=== PATIENT | female | born 1995 | race Caucasian/White ===

== ENCOUNTER 2017-03-21 22:42 | Emergency (ER) | payer MEDICAID, OTHER ==
[~2017-03-21] VITALS: Ht 167.6 cm; Wt 145.4 kg
[~2017-03-21 22:42] MED LIST: SERT50TA12 PO
[2017-03-21] MEDS ORDERED: ALPR0.5T8 PO (23:01)
[2017-03-21] MEDS ORDERED: ACETAMINOPHEN/CODEINE 300-30 MG TABLET PO ONE (23:45)
[2017-03-21] MEDS ORDERED: AMOXICILLIN TRIHYDRATE 250 MG CAPSULE PO ONE (23:45)
[2017-03-22 01:40] VITALS: BP 129/86
== END 2017-03-22 01:42 | disposition home or self-care (01) ==
LOC: EMS 22:58
DX: H66.92 Otitis media, unspecified, left ear (principal); F12.90 Cannabis use, unspecified, uncomplicated; F17.210 Nicotine dependence, cigarettes, uncomplicated; F41.9 Anxiety disorder, unspecified; F32.9 Major depressive disorder, single episode, unspecified; F12.10 Cannabis abuse, uncomplicated
CPT/HCPCS: 99283; 99406

== ENCOUNTER 2017-09-06 10:05 | Emergency (ER) | payer OTHER ==
[~2017-09-06] VITALS: Ht 167.6 cm; Wt 145.4 kg
[~2017-09-06 10:05] MED LIST changes: +ALPR0.5T8 PO
[2017-09-06 10:25] VITALS: BP 146/97
[2017-09-06 10:32] LABS: BASOPHILS % (AUTO) 0.4 % (0.0-2.0); EOSINOPHILS % (AUTO) 0.8 % (1.0-6.0); HEMATOCRIT 41.4 % (36-46); HEMOGLOBIN 14.3 g/dL (12.0-16.0); LYMPHOCYTES # (AUTO) 1.9 K/uL (1.0-4.8); MEAN CORPUSCULAR HEMOGLOBIN 29.7 pg (26.0-34.0); MEAN CORPUSCULAR HGB CONC 34.5 G/dL (31.0-37.0); MEAN CORPUSCULAR VOLUME 86 fL (80-100); MONOCYTES # (AUTO) 0.3 K/uL (0.1-1.0); MONOCYTES % (AUTO) 4.5 % (2.0-9.0); NEUTROPHILS # (AUTO) 4.5 K/uL (1.8-7.7); NEUTROPHILS % (AUTO) 66.3 % (40.0-70.0); PLATELET COUNT (AUTO) 133 K/uL (150-450); RED BLOOD CELL COUNT(AUTO) 4.82 MIL/uL (4.00-5.20); RED CELL DISTRIBUTION WIDTH 14.2 % (11.5-14.5)
[2017-09-06 10:38] LABS: ANION GAP 7 mmol/L (8-16); CALCIUM, TOTAL 8.6 mg/dL (8.8-10.5); CARBON DIOXIDE 27 mmol/L (22-29); CHLORIDE 103 mmol/L (98-107); CREATININE 0.85 mg/dL (0.60-1.30); GLOMERULAR FILTR. RATE CALC > 60 mL/min (>60); GLUCOSE,RANDOM 109 mg/dL (70-110); POTASSIUM 4.1 mmol/L (3.5-5.1); SODIUM SERUM 137 mmol/L (136-145); UREA NITROGEN, BLOOD 12 mg/dL (7-18)
[2017-09-06 10:43] LABS: ALANINE AMINOTRANSFERASE 20 U/L (12-78); ALBUMIN 3.5 g/dL (3.4-5.0); ALKALINE PHOSPHATASE 91 U/L (46-116); ASPARTATE AMINOTRANSFERASE 16 U/L (15-37); BILIRUBIN,TOTAL 0.5 mg/dL (0.1-1.0); TOTAL PROTEIN, SERUM 6.9 g/dL (6.4-8.2)
[2017-09-06 11:24] LABS: AMPHET/METH SCREEN,URINE NEGATIVE (NEGATIVE); BARBITURATE SCREEN, URINE NEGATIVE (NEGATIVE); BENZODIAZEPINES SCREEN,URINE NEGATIVE (NEGATIVE); CANNABINOID SCREEN,URINE POSITIVE (NEGATIVE); COCAINE SCREEN,URINE NEGATIVE (NEGATIVE); METHADONE SCREEN, URINE NEGATIVE (NEGATIVE); OPIATE SCREEN,URINE NEGATIVE (NEGATIVE)
[2017-09-06 11:27] LABS: PHENCYCLIDINE SCREEN,URINE NEGATIVE (NEGATIVE)
== END 2017-09-06 11:43 | disposition home or self-care (01) ==
LOC: EMS 10:09
DX: F32.9 Major depressive disorder, single episode, unspecified (principal); R45.851 Suicidal ideations; F41.9 Anxiety disorder, unspecified; F17.210 Nicotine dependence, cigarettes, uncomplicated; F12.90 Cannabis use, unspecified, uncomplicated
CPT/HCPCS: 36415; 80053; 80307; 84703; 85025; 99285; G0480

== ENCOUNTER 2018-03-03 08:38 | Emergency (ER) | payer OTHER ==
[~2018-03-03] VITALS: Ht 170.2 cm; Wt 107.7 kg
[2018-03-03 08:46] VITALS: BP 139/89
[2018-03-03] MEDS ORDERED: ESCI10TA PO (08:47)
[2018-03-03] MEDS ORDERED: IBUPROFEN 800 MG TABLET PO ONE (10:00)
== END 2018-03-03 12:01 | disposition home or self-care (01) ==
LOC: EMS 08:40
DX: S60.222A Contusion of left hand, initial encounter (principal); F17.210 Nicotine dependence, cigarettes, uncomplicated; F12.90 Cannabis use, unspecified, uncomplicated; W10.9XXA Fall (on) (from) unspecified stairs and steps, initial encounter; Y93.01 Activity, walking, marching and hiking; Y92.89 Other specified places as the place of occurrence of the external cause; Y99.8 Other external cause status
CPT/HCPCS: 99284

== ENCOUNTER 2018-06-09 15:35 | Emergency (ER) | payer OTHER ==
[~2018-06-09] VITALS: Ht 170.2 cm; Wt 159.1 kg
[~2018-06-09 15:35] MED LIST changes: -ALPR0.5T8 PO; +ESCI10TA PO; -SERT50TA12 PO
[2018-06-09 15:55] VITALS: BP 143/77
[2018-06-09 17:02] LABS: ANION GAP 6 mmol/L (8-16); CALCIUM, TOTAL 8.3 mg/dL (8.8-10.5); CARBON DIOXIDE 28 mmol/L (22-29); CHLORIDE 103 mmol/L (98-107); GLOMERULAR FILTR. RATE CALC > 60 mL/min (>60); GLUCOSE,RANDOM 101 mg/dL (70-110); POTASSIUM 4.3 mmol/L (3.5-5.1); SODIUM SERUM 137 mmol/L (136-145); UREA NITROGEN, BLOOD 14 mg/dL (7-18)
[2018-06-09 17:16] LABS: ALANINE AMINOTRANSFERASE 47 U/L (12-78); ALBUMIN 2.9 g/dL (3.4-5.0); ALKALINE PHOSPHATASE 81 U/L (46-116); ASPARTATE AMINOTRANSFERASE 23 U/L (15-37); BILIRUBIN,TOTAL 0.3 mg/dL (0.1-1.0); HCG,QUANTITATIVE < 1 mIU/mL (0-6); LIPASE 135 U/L (73-393); TOTAL PROTEIN, SERUM 6.2 g/dL (6.4-8.2)
[2018-06-09 17:18] LABS: BASOPHILS % (AUTO) 0.4 % (0.0-2.0); EOSINOPHILS % (AUTO) 1.9 % (1.0-6.0); HEMATOCRIT 40.4 % (36-46); HEMOGLOBIN 13.8 g/dL (12.0-16.0); LYMPHOCYTES # (AUTO) 2.4 K/uL (1.0-4.8); LYMPHOCYTES % (AUTO) 31.5 % (22.0-44.0); MEAN CORPUSCULAR HEMOGLOBIN 29.4 pg (26.0-34.0); MEAN CORPUSCULAR HGB CONC 34.1 G/dL (31.0-37.0); MEAN CORPUSCULAR VOLUME 86 fL (80-100); MONOCYTES # (AUTO) 0.5 K/uL (0.1-1.0); MONOCYTES % (AUTO) 6.9 % (2.0-9.0); NEUTROPHILS # (AUTO) 4.6 K/uL (1.8-7.7); NEUTROPHILS % (AUTO) 59.3 % (40.0-70.0); PLATELET COUNT (AUTO) 144 K/uL (150-450); RED BLOOD CELL COUNT(AUTO) 4.67 MIL/uL (4.00-5.20); RED CELL DISTRIBUTION WIDTH 15.2 % (11.5-14.5)
== END 2018-06-09 18:41 | disposition left against medical advice (07) ==
LOC: EMS 15:35
DX: R10.32 Left lower quadrant pain (principal); Z53.21 Procedure and treatment not carried out due to patient leaving prior to being seen by health care provider

== ENCOUNTER 2018-08-28 00:50 | Emergency (ER) | payer OTHER ==
[~2018-08-28] VITALS: Ht 167.6 cm; Wt 156.8 kg
[2018-08-28] MEDS ORDERED: FLUO-191 PO (01:03)
[2018-08-28] MEDS ORDERED: HYDROCODONE/ACETAMINOPHEN 10-325 MG TABLET PO ONE (02:00)
[2018-08-28] MEDS ORDERED: KETOROLAC TROMETHAMINE 30 MG/ML VIAL IM ONE (03:45)
[2018-08-28 04:12] LABS: BASOPHILS % (AUTO) 0.5 % (0.0-2.0); EOSINOPHILS % (AUTO) 2.1 % (1.0-6.0); HEMATOCRIT 35.2 % (36-46); LYMPHOCYTES # (AUTO) 2.1 K/uL (1.0-4.8); LYMPHOCYTES % (AUTO) 28.1 % (22.0-44.0); MEAN CORPUSCULAR HEMOGLOBIN 29.6 pg (26.0-34.0); MEAN CORPUSCULAR VOLUME 87 fL (80-100); MONOCYTES # (AUTO) 0.5 K/uL (0.1-1.0); MONOCYTES % (AUTO) 6.7 % (2.0-9.0); NEUTROPHILS # (AUTO) 4.6 K/uL (1.8-7.7); NEUTROPHILS % (AUTO) 62.6 % (40.0-70.0); PLATELET COUNT (AUTO) 155 K/uL (150-450); RED BLOOD CELL COUNT(AUTO) 4.05 MIL/uL (4.00-5.20); RED CELL DISTRIBUTION WIDTH 14.1 % (11.5-14.5)
[2018-08-28 04:19] LABS: ANION GAP 4 mmol/L (8-16); CALCIUM, TOTAL 8.7 mg/dL (8.8-10.5); CARBON DIOXIDE 32 mmol/L (22-29); CHLORIDE 105 mmol/L (98-107); CREATININE 0.76 mg/dL (0.60-1.30); GLOMERULAR FILTR. RATE CALC > 60 mL/min (>60); GLUCOSE,RANDOM 104 mg/dL (70-110); POTASSIUM 4.5 mmol/L (3.5-5.1); SODIUM SERUM 141 mmol/L (136-145); UREA NITROGEN, BLOOD 11 mg/dL (7-18)
[2018-08-28 04:32] LABS: ALANINE AMINOTRANSFERASE 25 U/L (12-78); ALBUMIN 3.2 g/dL (3.4-5.0); ALKALINE PHOSPHATASE 123 U/L (46-116); ASPARTATE AMINOTRANSFERASE 20 U/L (15-37); BILIRUBIN,TOTAL 0.1 mg/dL (0.1-1.0); HCG,QUANTITATIVE < 1 mIU/mL (0-6); TOTAL PROTEIN, SERUM 6.5 g/dL (6.4-8.2)
[2018-08-28 05:23] VITALS: BP 124/69
== END 2018-08-28 05:24 | disposition home or self-care (01) ==
LOC: EMS 00:51
DX: N93.8 Other specified abnormal uterine and vaginal bleeding (principal); H92.03 Otalgia, bilateral; E66.01 Morbid (severe) obesity due to excess calories; F41.9 Anxiety disorder, unspecified; F32.9 Major depressive disorder, single episode, unspecified; F12.90 Cannabis use, unspecified, uncomplicated; Z68.43 Body mass index [BMI] 50.0-59.9, adult
CPT/HCPCS: 36415; 80053; 84702; 85025; 96372; 99283; J1885

== ENCOUNTER 2019-02-15 07:33 | Emergency (ER) | payer OTHER ==
[~2019-02-15] VITALS: Ht 170.2 cm; Wt 154.6 kg
[~2019-02-15 07:33] MED LIST changes: -ESCI10TA PO; +FLUO-191 PO
[2019-02-15] MEDS ORDERED: KETOROLAC TROMETHAMINE 10 MG TABLET PO ONE (09:30)
[2019-02-15] MEDS ORDERED: PERTUSS(ACELL),DIPH,TET VAC/PF 0.5 ML VIAL IM ONE (09:30)
[2019-02-15] MEDS ORDERED: BACITRACIN 0.9 GM PACKET OINTMENT TP ONE (09:30)
[2019-02-15] MEDS ORDERED: POVIDONE-IODINE 10% 15 ML SOLUTION UD TP ONE (09:30)
[2019-02-15 10:27] VITALS: BP 121/74
== END 2019-02-15 10:30 | disposition left against medical advice (07) ==
LOC: EMS 07:35
DX: S06.0X9A Concussion with loss of consciousness of unspecified duration, initial encounter (principal); S01.81XA Laceration without foreign body of other part of head, initial encounter; F32.9 Major depressive disorder, single episode, unspecified; F41.9 Anxiety disorder, unspecified; F12.90 Cannabis use, unspecified, uncomplicated; W18.39XA Other fall on same level, initial encounter; Y93.89 Activity, other specified; Y92.89 Other specified places as the place of occurrence of the external cause; Y99.8 Other external cause status
CPT/HCPCS: 90471; 90715

== ENCOUNTER 2020-01-22 03:11 | Inpatient (IN) | payer MEDICAID, OTHER ==
[~2020-01-22] VITALS: Ht 170.2 cm; Wt 158.0 kg
[~2020-01-22 03:11] MED LIST changes: -FLUO-191 PO; +SERT100T12 PO; +TRAZ-252 PO
[2020-01-22 03:52] LABS: BASOPHILS % (AUTO) 0.7 % (0.0-2.0); EOSINOPHILS % (AUTO) 2.5 % (1.0-6.0); HEMATOCRIT 33.8 % (36-46); HEMOGLOBIN 10.9 g/dL (12.0-16.0); LYMPHOCYTES # (AUTO) 2.3 K/uL (1.0-4.8); LYMPHOCYTES % (AUTO) 34.6 % (22.0-44.0); MEAN CORPUSCULAR HEMOGLOBIN 24.3 pg (26.0-34.0); MEAN CORPUSCULAR HGB CONC 32.2 G/dL (31.0-37.0); MEAN CORPUSCULAR VOLUME 76 fL (80-100); MONOCYTES # (AUTO) 0.4 K/uL (0.1-1.0); MONOCYTES % (AUTO) 6.2 % (2.0-9.0); NEUTROPHILS # (AUTO) 3.7 K/uL (1.8-7.7); PLATELET COUNT (AUTO) 160 K/uL (150-450); RED BLOOD CELL COUNT(AUTO) 4.47 MIL/uL (4.00-5.20); RED CELL DISTRIBUTION WIDTH 18.9 % (11.5-14.5)
[2020-01-22 04:01] LABS: ANION GAP 9 mmol/L (8-16); CARBON DIOXIDE 28 mmol/L (22-29); CHLORIDE 105 mmol/L (98-107); CREATININE 0.72 mg/dL (0.60-1.30); GLOMERULAR FILTR. RATE CALC > 60 mL/min (>60); GLUCOSE,RANDOM 109 mg/dL (70-110); POTASSIUM 4.5 mmol/L (3.5-5.1); SODIUM SERUM 142 mmol/L (136-145); UREA NITROGEN, BLOOD 11 mg/dL (7-18)
[2020-01-22 04:14] LABS: ALANINE AMINOTRANSFERASE 22 U/L (12-78); ALBUMIN 3.9 g/dL (3.4-5.0); ALKALINE PHOSPHATASE 113 U/L (46-116); ASPARTATE AMINOTRANSFERASE 14 U/L (15-37); BILIRUBIN,TOTAL 0.3 mg/dL (0.1-1.0); HCG,QUANTITATIVE < 1 mIU/mL (0-6)
[2020-01-22 06:32] LABS: AMPHET/METH SCREEN,URINE NEGATIVE (NEGATIVE); BARBITURATE SCREEN, URINE NEGATIVE (NEGATIVE); BENZODIAZEPINES SCREEN,URINE NEGATIVE (NEGATIVE); CANNABINOID SCREEN,URINE POSITIVE (NEGATIVE); COCAINE SCREEN,URINE NEGATIVE (NEGATIVE); METHADONE SCREEN, URINE NEGATIVE (NEGATIVE); OPIATE SCREEN,URINE NEGATIVE (NEGATIVE); PHENCYCLIDINE SCREEN,URINE NEGATIVE (NEGATIVE)
[2020-01-22] MEDS ORDERED: MAGNESIUM HYDROXIDE SUSPENSION 30 ML UDCUP PO PRN (08:30)
[2020-01-22] MEDS ORDERED: MAG HYDROX/AL HYDROX/SIMETH ES 30 ML SUSPENSION UDCUP PO PRN (08:30)
[2020-01-22] MEDS ORDERED: DOCUSATE SODIUM 100 MG CAPSULE PO PRN (08:30)
[2020-01-22] MEDS ORDERED: NICOTINE 14 MG/24 HOUR PATCH TD PRN (08:30)
[2020-01-22] MEDS ORDERED: GuaiFENesin/D-METHORPHAN [SUGAR-FREE] 200-20MG/10 ML SYRUP UDCUP PO PRN (08:30)
[2020-01-22] MEDS ORDERED: ONDANSETRON HCL 4 MG TABLET PO PRN (08:30)
[2020-01-22] MEDS ORDERED: PETROLATUM,WHITE 28 GM JELLY TP PRN (08:30)
[2020-01-22] MEDS ORDERED: ALBUTEROL SULFATE HFA 90 MCG/PUFF 8 GM INHALER IH PRN (08:30)
[2020-01-22] MEDS ORDERED: LOPERAMIDE HCL 2 MG CAPSULE PO PRN (08:30)
[2020-01-22] MEDS ORDERED: CloNIDine HCL 0.1 MG TABLET PO PRN (08:30)
[2020-01-22 09:16] VITALS: BP 142/95
[2020-01-22] MEDS: LORazepam 2 MG TABLET PO PRN (14:56)
[2020-01-22 17:32] VITALS: BP 144/92
[2020-01-22 20:00] VITALS: BP 138/86
[2020-01-22] MEDS: TraZODone HCL 100 MG TABLET PO SCH (20:31)
[2020-01-23 07:54] LABS: CHOL/HDL RATIO 5.6 (3.9-5.7)
[2020-01-23] MEDS: SERTRALINE HCL 100 MG TABLET PO SCH (08:00)
[2020-01-23 08:10] VITALS: BP 146/92
[2020-01-23] MEDS: IBUPROFEN 400 MG TABLET PO PRN ×2 (08:10→17:46)
[2020-01-23] MEDS: LORazepam 2 MG TABLET PO PRN (13:33)
[2020-01-23] MEDS: HALOPERIDOL 5 MG TABLET PO PRN (13:33)
[2020-01-23] MEDS: CIPROFLOXACIN HCL 0.3% 2.5 ML OPHTHALMIC SOLUTION AD SCH (16:34)
[2020-01-23 17:14] VITALS: BP 129/50
[2020-01-23 17:44] VITALS: BP 134/60
[2020-01-23] MEDS: TraZODone HCL 100 MG TABLET PO SCH (20:15)
[2020-01-24 01:30] VITALS: BP 128/75
[2020-01-24] MEDS: IBUPROFEN 400 MG TABLET PO PRN ×3 (01:43→17:44)
[2020-01-24] MEDS: LORazepam 2 MG TABLET PO PRN ×2 (01:45→17:08)
[2020-01-24 08:25] VITALS: BP 157/93
[2020-01-24] MEDS: CIPROFLOXACIN HCL 0.3% 2.5 ML OPHTHALMIC SOLUTION AD SCH (09:55)
[2020-01-24] MEDS: SERTRALINE HCL 100 MG TABLET PO SCH (09:55)
[2020-01-24] MEDS: CIPROFLOXACIN HCL 500 MG TABLET PO SCH ×2 (12:20→16:10)
[2020-01-24] MEDS: CIPROFLOXACIN HCL 0.2%/HYDROCORT 1% 10 ML OTIC SUSPENSION AD SCH (12:21)
[2020-01-24] MEDS: ACETAMINOPHEN 325 MG TABLET PO PRN (14:24)
[2020-01-24 16:46] VITALS: BP 124/65
[2020-01-24] MEDS: HALOPERIDOL 5 MG TABLET PO PRN (17:08)
[2020-01-24 17:44] VITALS: BP 120/80
[2020-01-24] MEDS: TraZODone HCL 100 MG TABLET PO SCH (20:15)
[2020-01-24] MEDS: ZOLPIDEM TARTRATE 10 MG TABLET PO PRN (22:34)
[2020-01-25] MEDS: IBUPROFEN 400 MG TABLET PO PRN ×3 (03:49→23:44)
[2020-01-25] MEDS: LORazepam 2 MG TABLET PO PRN ×4 (03:49→23:44)
[2020-01-25 04:06] VITALS: BP 137/91
[2020-01-25 08:38] VITALS: BP 119/88
[2020-01-25] MEDS: CIPROFLOXACIN HCL 500 MG TABLET PO SCH ×3 (08:44→16:03)
[2020-01-25] MEDS: SERTRALINE HCL 100 MG TABLET PO SCH (08:44)
[2020-01-25] MEDS: CIPROFLOXACIN HCL 0.2%/HYDROCORT 1% 10 ML OTIC SUSPENSION AD SCH (08:44)
[2020-01-25] MEDS: ACETAMINOPHEN 325 MG TABLET PO PRN (09:45)
[2020-01-25] MEDS: HALOPERIDOL 5 MG TABLET PO PRN (10:01)
[2020-01-25 16:00] VITALS: BP 145/93
[2020-01-25] MEDS: TraZODone HCL 100 MG TABLET PO SCH (20:12)
[2020-01-25 23:40] VITALS: BP 133/88
[2020-01-25] MEDS: ZOLPIDEM TARTRATE 10 MG TABLET PO PRN (23:44)
[2020-01-26 09:08] VITALS: BP 120/60
[2020-01-26] MEDS: IBUPROFEN 400 MG TABLET PO PRN (09:19)
[2020-01-26] MEDS: SERTRALINE HCL 100 MG TABLET PO SCH (09:19)
[2020-01-26] MEDS: CIPROFLOXACIN HCL 0.2%/HYDROCORT 1% 10 ML OTIC SUSPENSION AD SCH (09:19)
[2020-01-26] MEDS: CIPROFLOXACIN HCL 500 MG TABLET PO SCH ×2 (09:20→12:53)
[2020-01-26] MEDS ORDERED: TRAZ-257 PO (12:14)
[2020-01-26] MEDS ORDERED: CIPOTIC AD (12:20)
[2020-01-26] MEDS ORDERED: CIPR-278 PO (12:20)
== END 2020-01-26 13:40 | disposition home or self-care (01) | DRG 885 ==
LOC: EMS 03:11 → 3EI 05:05
PROVIDERS: ADMIT Psychiatry & Neurology Child & Adolescent Psychiatry; ATTEND Psychiatry & Neurology Child & Adolescent Psychiatry
DX: F33.2 Major depressive disorder, recurrent severe without psychotic features (principal); R45.851 Suicidal ideations; F12.90 Cannabis use, unspecified, uncomplicated; E66.01 Morbid (severe) obesity due to excess calories; D64.9 Anemia, unspecified; F10.10 Alcohol abuse, uncomplicated; H60.90 Unspecified otitis externa, unspecified ear; H66.90 Otitis media, unspecified, unspecified ear; F41.9 Anxiety disorder, unspecified
CPT/HCPCS: 70480; G0480

== ENCOUNTER 2020-10-10 19:58 | Inpatient (IN) | payer MEDICAID ==
[~2020-10-10 19:58] MED LIST changes: +CIPOTIC AD; +CIPR-278 PO; +SERT-162 PO; -SERT100T12 PO; -TRAZ-252 PO; +TRAZ-257 PO
[2020-10-10 22:13] VITALS: BP 118/68
[2020-10-10] MEDS ORDERED: ZOLPIDEM TARTRATE 10 MG TABLET PO PRN (22:30)
[2020-10-11] MEDS ORDERED: INFLUENZA VIRUS VACCINE QVS 2020-21 (6MO+)/PF 60 MCG/0.5 ML SYRINGE IM ONE (02:00)
[2020-10-11 03:51] VITALS: BP 98/66
[2020-10-11] MEDS: HALOPERIDOL 5 MG TABLET PO PRN ×2 (04:01→17:10)
[2020-10-11] MEDS: LORazepam 2 MG TABLET PO PRN ×3 (04:01→17:10)
[2020-10-11] MEDS ORDERED: GuaiFENesin/D-METHORPHAN [SUGAR-FREE] 200-20MG/10 ML SYRUP UDCUP PO PRN (08:30)
[2020-10-11] MEDS ORDERED: LOPERAMIDE HCL 2 MG CAPSULE PO PRN (08:30)
[2020-10-11] MEDS ORDERED: PETROLATUM,WHITE 28 GM JELLY TP PRN (08:30)
[2020-10-11] MEDS ORDERED: CloNIDine HCL 0.1 MG TABLET PO PRN (08:30)
[2020-10-11] MEDS ORDERED: DOCUSATE SODIUM 100 MG CAPSULE PO PRN (08:30)
[2020-10-11] MEDS ORDERED: ACETAMINOPHEN 325 MG TABLET PO PRN (08:30)
[2020-10-11] MEDS ORDERED: MAGNESIUM HYDROXIDE SUSPENSION 30 ML UDCUP PO PRN (08:30)
[2020-10-11] MEDS ORDERED: NICOTINE 14 MG/24 HOUR PATCH TD PRN (08:30)
[2020-10-11] MEDS ORDERED: ONDANSETRON HCL 4 MG TABLET PO PRN (08:30)
[2020-10-11] MEDS ORDERED: ALBUTEROL SULFATE HFA 90 MCG/PUFF 8 GM INHALER IH PRN (08:30)
[2020-10-11] MEDS ORDERED: IBUPROFEN 400 MG TABLET PO PRN (08:30)
[2020-10-11] MEDS ORDERED: MAG HYDROX/AL HYDROX/SIMETH ES 30 ML SUSPENSION UDCUP PO PRN (08:30)
[2020-10-11 08:31] LABS: BASOPHILS % (AUTO) 0.4 % (0.0-2.0); EOSINOPHILS % (AUTO) 2.3 % (1.0-6.0); HEMATOCRIT 31.5 % (36-46); HEMOGLOBIN 10.5 g/dL (12.0-16.0); LYMPHOCYTES # (AUTO) 1.6 K/uL (1.0-4.8); LYMPHOCYTES % (AUTO) 38.6 % (22.0-44.0); MEAN CORPUSCULAR HEMOGLOBIN 25.8 pg (26.0-34.0); MEAN CORPUSCULAR HGB CONC 33.4 G/dL (31.0-37.0); MEAN CORPUSCULAR VOLUME 77 fL (80-100); MONOCYTES # (AUTO) 0.4 K/uL (0.1-1.0); MONOCYTES % (AUTO) 8.8 % (2.0-9.0); NEUTROPHILS # (AUTO) 2.1 K/uL (1.8-7.7); NEUTROPHILS % (AUTO) 49.9 % (40.0-70.0); PLATELET COUNT (AUTO) 122 K/uL (150-450); RED BLOOD CELL COUNT(AUTO) 4.06 MIL/uL (4.00-5.20); RED CELL DISTRIBUTION WIDTH 17.8 % (11.5-14.5)
[2020-10-11 08:44] LABS: HEMOGLOBIN A1C 5.2 % (3.8-5.6)
[2020-10-11 08:50] LABS: ALANINE AMINOTRANSFERASE 31 U/L (12-78); ALBUMIN 3.4 g/dL (3.4-5.0); ALKALINE PHOSPHATASE 82 U/L (46-116); ANION GAP 10 mmol/L (8-16); ASPARTATE AMINOTRANSFERASE 19 U/L (15-37); BILIRUBIN,TOTAL 0.5 mg/dL (0.1-1.0); CALCIUM, TOTAL 8.8 mg/dL (8.8-10.5); CARBON DIOXIDE 26 mmol/L (22-29); CHLORIDE 103 mmol/L (98-107); CHOLESTEROL 100 mg/dL (131-200); CREATININE 0.76 mg/dL (0.60-1.30); GLOMERULAR FILTR. RATE CALC > 60 mL/min (>60); GLUCOSE,RANDOM 87 mg/dL (70-110); HCG,QUANTITATIVE < 1 mIU/mL (0-6); HDL CHOLESTEROL 20 mg/dL (40-60); LDL CHOL (CALC.) 62 mg/dL (0-130); SODIUM SERUM 139 mmol/L (136-145); TOTAL PROTEIN, SERUM 6.7 g/dL (6.4-8.2); TRIGLYCERIDES 89 mg/dL (15-150); UREA NITROGEN, BLOOD 9 mg/dL (7-18)
[2020-10-11] MEDS: MetroNIDAZOLE 500 MG TABLET PO SCH ×2 (11:58→17:10)
[2020-10-11] MEDS: SERTRALINE HCL 100 MG TABLET PO SCH (12:35)
[2020-10-11] MEDS: ARIPiprazole 5 MG TABLET PO SCH (12:35)
[2020-10-11 16:15] VITALS: BP 126/74
[2020-10-11] MEDS ORDERED: POTASSIUM CHLORIDE 20 MEQ ER TABLET PO ONE (18:00)
[2020-10-12 00:22] VITALS: BP 117/71
[2020-10-12] MEDS: ARIPiprazole 5 MG TABLET PO SCH (08:25)
[2020-10-12] MEDS: MetroNIDAZOLE 500 MG TABLET PO SCH ×2 (08:25→16:57)
[2020-10-12] MEDS: LORazepam 2 MG TABLET PO PRN ×2 (08:25→17:04)
[2020-10-12] MEDS: SERTRALINE HCL 100 MG TABLET PO SCH (08:25)
[2020-10-12 08:28] VITALS: BP 130/80
[2020-10-12 16:30] VITALS: BP 99/58
[2020-10-13 04:32] VITALS: BP 101/64
[2020-10-13 08:26] VITALS: BP 125/69
[2020-10-13] MEDS: SERTRALINE HCL 100 MG TABLET PO SCH (08:30)
[2020-10-13] MEDS: MetroNIDAZOLE 500 MG TABLET PO SCH ×2 (08:30→16:20)
[2020-10-13] MEDS: ARIPiprazole 5 MG TABLET PO SCH (08:30)
[2020-10-13 16:29] VITALS: BP 133/76
[2020-10-13] MEDS ORDERED: ARIP5TAB8 PO (16:42)
[2020-10-13] MEDS ORDERED: METR500 PO (16:43)
== END 2020-10-13 18:40 | disposition home or self-care (01) | DRG 751 ==
LOC: B3A 22:23
DX: F33.3 Major depressive disorder, recurrent, severe with psychotic symptoms (principal); R45.851 Suicidal ideations; Z91.5 Personal history of self-harm; Z81.8 Family history of other mental and behavioral disorders; D64.9 Anemia, unspecified; F15.10 Other stimulant abuse, uncomplicated; F12.10 Cannabis abuse, uncomplicated; F10.10 Alcohol abuse, uncomplicated; Y90.9 Presence of alcohol in blood, level not specified; F19.10 Other psychoactive substance abuse, uncomplicated; E87.6 Hypokalemia; D72.819 Decreased white blood cell count, unspecified; Z79.899 Other long term (current) drug therapy; Z28.21 Immunization not carried out because of patient refusal
CPT/HCPCS: 83036; 84132

== ENCOUNTER 2020-10-10 22:12 | Emergency (ER) | payer MEDICAID, OTHER ==
[~2020-10-10] VITALS: Ht 167.6 cm; Wt 154.6 kg
[2020-10-10 23:36] LABS: APPEARANCE,URINE CLOUDY (CLEAR); GLUCOSE, URINE (UA) NEGATIVE (NEGATIVE); KETONES,URINE NEGATIVE (NEGATIVE); LEUKOCYTE ESTERASE ,URINE NEGATIVE (NEGATIVE); NITRATE,URINE NEGATIVE (NEGATIVE); OCCULT BLOOD,URINE MODERATE (NEGATIVE); PH,URINE 5.5 (5.0-8.0); PROTEIN,URINE POS 1+ (NEGATIVE); UROBILINOGEN,URINE 0.2 mg/dL (<=1.0)
[2020-10-10 23:40] LABS: BILIRUBIN,URINE PRELIM. POSITIVE (NEGATIVE)
[2020-10-10 23:54] LABS: BACTERIA,URINE Many /HPF (None Seen)
[2020-10-10 23:58] LABS: SQUAMOUS EPITHELIAL CELL,UR Moderate /LPF (None Seen); WBC,URINE 0-2 /HPF (0-5)
[2020-10-11 00:15] LABS: COVID AG,FIA SOURCE NASOPHARYNGEAL
[2020-10-11] MEDS ORDERED: CefTRIAXone SODIUM 1 GM/VIAL IM ONE (00:30)
[2020-10-11] MEDS ORDERED: LIDOCAINE/PF 1% 2 ML VIAL IM ONE (00:30)
[2020-10-11] MEDS ORDERED: AZITHROMYCIN 500 MG TABLET PO ONE (00:30)
[2020-10-11 02:00] VITALS: BP 112/71
== END 2020-10-11 02:52 | disposition home or self-care (01) ==
LOC: EMS 22:16
DX: S40.022A Contusion of left upper arm, initial encounter (principal); S40.021A Contusion of right upper arm, initial encounter; N76.0 Acute vaginitis; F41.9 Anxiety disorder, unspecified; F32.9 Major depressive disorder, single episode, unspecified; F12.90 Cannabis use, unspecified, uncomplicated; F19.90 Other psychoactive substance use, unspecified, uncomplicated; Z20.822 Contact with and (suspected) exposure to COVID-19; Y04.2XXA Assault by strike against or bumped into by another person, initial encounter; Y93.89 Activity, other specified; Y92.89 Other specified places as the place of occurrence of the external cause; Y99.8 Other external cause status
CPT/HCPCS: 71046; 81001; 84703; 87086; 87210; 87426; 87491; 87591; 96372; 99284; A9575; J0696; J3490